=== PATIENT | female | born 1995 | race Caucasian/White ===

== ENCOUNTER 2020-05-28 09:00 | Outpatient (RCR) | payer MEDICAID, SELFPAY ==
--- NOTE | 2020-05-28 09:00 | BH.SGPN.GN ---
This psychotherapy group was provided via telehealth using two-way, real-time interactive telecommunication technology between the patients and the provider. The interactive telecommunication technology included audio and video. The patient was offered telemedicine as an option for care delivery during the COVID-19 pandemic and consented to this option. Patient location: [place] Provider located at [facility] Behaviors/Verbalizations/Mental Status: []Client alert and oriented, casually dressed. Eye contact fair. Motor activity appropriate. Speech within normal limits. Affect congruent, mood anxious. Thoughts linear, logical, no signs of hallucinations or delusions. Reviewed client?s symptom tracker, no risk or plan for suicide ideation as of 05/28/20. Client Response/Progress/Benefit: [] Client responded well to session, engaged throughout AEB actively listening, but quiet. Client declined to share in group as it was her first day of the IOP group. Benefited from group as client was able to establish rapport with other group members and understand the format of process group. Will continue IOP to increase the use of healthy coping skills, improve mood, and prevent decompensation. Narrative Note: []
--- NOTE | 2020-05-28 10:03 | BH.SGPN.GN ---
This psychotherapy group was provided via telehealth using two-way, real-time interactive telecommunication technology between the patients and the provider.?The interactive telecommunication technology included audio and video.? ?The patient was offered telemedicine as an option for care delivery during the COVID-19 pandemic and consented to this option. ?Patient location: [place] ?Provider located at [facility] Behaviors/Verbalizations/Mental Status: []Client alert and oriented, casual dress, hygiene tended to. Eye contact good. Motor activity appropriate. Speech within normal limits. Affect congruent, mood anxious. Thoughts linear, logical, no signs of hallucinations or delusions. Client Response/Progress/Benefit: []Pt responded well to session AEB pt contributing to session and listening attentively to others. Pt connected with the topic of resilience as well as the different things people have to ?juggle? in life. Discussed the positive and negative forces in life that impact a person?s resilience. Pt identified a positive force to be encouraging people. Pt contributed to small group discussion on traits that promote resilience. Pt?s group discussed acceptance, self-awareness, and hopeful outlook as strategies to increase resilience. Pt seemed to benefit from increasing awareness of strategies to increase personal resilience. First day of IOP tx. Pt will continue IOP tx to prevent decompensation, improve mood stability, and learn healthy coping skills. Narrative Note: []
--- NOTE | 2020-05-28 11:00 | BH.SGPN.GN ---
This psychotherapy group was provided via telehealth using two-way, real-time interactive telecommunication technology between the patients and the provider. The interactive telecommunication technology included audio and video. The patient was offered telemedicine as an option for care delivery during the COVID-19 pandemic and consented to this option. Patient location: [place] Provider located at [facility] Behaviors/Verbalizations/Mental Status: []Client alert and oriented, casual dress, hygiene tended to. Eye contact fair. Motor activity appropriate. Speech within normal limits. Affect flat, mood anxious. Thoughts linear, logical, no signs of hallucinations or delusions. Client Response/Progress/Benefit: []Client responded well to session AEB contributing to discussion. Client participated in the discussion of how each resiliency component can help increase personal resiliency. Client identified current resiliency traits client currently possesses and how these can continue to help client in treatment. Client identified personal resilience trait as having healthy connections through supports and therapy. Client?s goal is to increase self-awareness of feelings and emotions by journaling daily. Benefited from group as client was vulnerable and communicated through her first day of IOP program. Will continue IOP to increase the use of healthy coping skills and improve daily functioning. Narrative Note: []
--- NOTE | 2020-05-30 09:00 | BH.SGPN.GN ---
Behaviors/Verbalizations/Mental Status: [] Eye contact is good. Motor activity is appropriate. Appearance is disheveled. Speech is Appropriate. Mood is depressed. Affect is flat. Thoughts are linear and logical. No evidence of psychosis. Client Response/Progress/Benefit: [] Pt participated at times during the group discussion. Emotion for today is anxious. Attentive. Mental health wins included getting out of the house stating that she went out to dinner with her mother. States that she spend her life in the basement and does not leave due to mainly to MH symptoms. Shared that she was anxious however used some thought-reframing skills to help. Believes that leaving the basement was helpful. Overall feels that she is not managing her emotions well. States that she attempted to clean the house and got very upset and lashed out on herself. Hx of self-injurious behaviors (hitting self). Benefited from group support and encouragement. Some progress noted by patient. Will continue in IOP to maintain safety, increase coping skills, and improve functioning. Narrative Note: [] This psychotherapy group was provided via telehealth using two-way, real-time interactive telecommunication technology between the patients and the provider.?The interactive telecommunication technology included audio and video.? ?The patient was offered telemedicine as an option for care delivery during the COVID-19 pandemic and consented to this option. ?Patient location: [place] ?Provider located at [facility]
--- NOTE | 2020-05-30 11:45 | BH.NA ---
Physical Data - Height/Weight Height: 1.68 m Weight:: 81.647 kg Weight in Pounds: 180.0 lbs Current Medication Compliance - Medication Compliance Do you take your medication as prescribed?: Yes Nutritional History - Appetite Nutritional Instructions:: If client shows signs of a swallowing problem, weight change of 10 pounds or more in the last month, or is on a diabetic diet, the physician will review and request a dietitian consult, as appropriate. All unintentional weight loss will be referred to the physician for decision on need for dietitian consult. Describe your appetite:: Fair Additional nutritional information:: Client states her appetite varies, stating sometimes she binges food and sometimes she doesn't eat at all. Functional Assessment - Sleep Pattern Describe any problems with sleeping: Client states for the past 4 months she has been sleeping 12 hours per day. - Activities Motor Activity:: Functional Sensory/Communication Assess - Communication Problems Do you have difficulty understanding what people are saying?: No Medical Problems/History - Cardiac Conditions Cardiovascular: Other (See comments) Comments:: POTS - Additional History Additional comments:: depression, anxiety, borderline personality, PTSD Surgical History - Surgical History Have you had any surgeries? If so, list type and date:: No Substance Abuse - Substance Abuse Please describe substance abuse in the last 30 days:: Client states she used to drink alcohol excessively when depressed, but states she does not ever drink alcohol now. Client states she vapes tobacco. Client denies substance abuse. Client states she drinks 1-2 drinks with caffiene daily. Mental Status Summary - Mental Status Significant Findings/Observations on Appearance and Mood:: Client is met with via telehealth. Client is alert and oriented x 4. Client appear to be casually groomed. Client's voice is normal rate. Client appears mildly anxious and depressed. Client denies delusions/hallucinations. Client states she has fleeting SI daily. Suicide Assessment - Suicidal Ideation Are you currently or have you been suicidal in the past?: Yes - fleeting SI daily Suicidal Intentional Rating Scale (SIRS): Current suicidal thoughts/No plan/Contracts for safety Physician Notification: If Active suicidal thoughts/Will not contract for safety is checked, contact physician and document in the Physician Notification section below. Past Psychiatric History - MH Treatment Hx Past Psychiatric Medications:: Client does not remember past medications. Age of first mental health symptoms: Client states she was diagnosed with anxiety and depression around 10 years old and started taking medication. Client states she was diagnosed with borderline personality in the last few months. Describe (age, circumstance, etc) any past hospitalizations: [facility] in [place] in 2015 Current providers for mental health treatment (counselor, psychiatrist, catalytic case operator, etc.): therapy and psychiatry at [facility]. Fall Risk Assessment - Age Age: Less than 60 - Mental Status Mental Status: Willing & able to ask for assistance when needed - Physical Status Physical Status: No problems - Impairments Impairments: None - Elimination Elimination: Continent AND independent - Gait or Balance Gait or Balance: Walks independently - Hx of Falls History of falls in the past 6 months: No known history - Medications/Substances Psychotropics:: Antidepressants, Antipsychotics Medications/substances used within the past 24 hours or ordered to administer: 1-2 of the medications/substances listed above - Total Score Total Points:: 1 RN Summary of Impressions - Impressions Recommendations: Include psychiatric and medical issues, treatment planning recommendations, and discharge planning needs. Impressions: Psychiatric Issues: Borderline personality disorder; major depressive disorder reccurent, severe without psychosis; panic disorder. - Level of Care How do the client's current symptoms and functional deficits support need for this level of care?: Client was referred to IOP by her outpatient therapist for depression and fleeting SI. Client states over the last month or more, she has had vivid suicidal thoughts and is self-harming herself. Client states she stratches and hits herself. Client states she self-harmed as recently as yesterday, and has bruises and a cut on her arm. Client states she does this daily when I get mad at myself. Client also endorses decreased energy, hopelessness, anhedonia and ruminations. Client states even though she is disabled, she feels like she is not going anywhere in life and like she should have a job and this is partially her cause for depression. Client states she has daily fleeting SI, sometimes with vivid suicidal thoughts. Client states to cope with these, she usually goes to sleep to make her stop thinking them. Client states she sleeps 12 hours per day and has done this for several months. IOP will promote gains and prevent further decompensation while providing social support and skills training.
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
--- NOTE | 2020-05-30 12:32 | BH.PSY.EVA_ITS ---
Initial Treatment Plan - Patient Information Visit Information: ADMISSION DATE: EXPECTED LOS: 4-6 weeks - Problems/Symptoms Problem #1:: Depression Symptom:: Hopelessness, anhedonia, sadness, hypersomnia, passive fleeting suici hayden ideation, self-harm behaviors Problem #2:: Anxiety Symptom:: Rumination, worry, panic attacks
--- NOTE | 2020-05-31 09:08 | BH.SGPN.GN ---
This psychotherapy group was provided via telehealth using two-way, real-time interactive telecommunication technology between the patients and the provider.?The interactive telecommunication technology included audio and video.? ?The patient was offered telemedicine as an option for care delivery during the COVID-19 pandemic and consented to this option. ?Patient location: [place] ?Provider located at [facility] Behaviors/Verbalizations/Mental Status: []Client alert and oriented, casually dressed and groomed. Eye contact good. Motor activity appropriate. Speech within normal limits. Affect constricted, mood anxious. Thoughts linear, logical, no signs of hallucinations or delusions. Therapist assessed client?s symptom tracker via Zoom, no risk for suicidal ideation, plan, or intent as of 05/31/20 Client Response/Progress/Benefit: []Client responded well to session, attentive and receptive to feedback. Client reports feeling anxious this morning. Client stated group makes her anxious, but so far client has been enjoying the group setting. Client shared in her first week she has learned a lot of coping skills and also gained more awareness of her feelings. Client reported I didn't do much of anything yesterday but client was able to challenge this perspective. Client acknowledged that coming to IOP and seeing different providers takes a lot of energy and focus. Client shared she would like to work on being less negative and was encouraged to ask her individual therapist about thought challenging. Appeared to benefit from connecting with peers and reframing thoughts in the moment. Will continue IOP tx to prevent decompensation, reduce isolative behaviors, and improve emotional regulation skills. Narrative Note: []
--- NOTE | 2020-05-31 10:10 | BH.SGPN.GN ---
This psychotherapy group was provided via telehealth using two-way, real-time interactive telecommunication technology between the patients and the provider. The interactive telecommunication technology included audio and video. The patient was offered telemedicine as an option for care delivery during the COVID-19 pandemic and consented to this option. Patient location: [place] Provider located at [facility] Behaviors/Verbalizations/Mental Status: []Client alert and oriented, casually dressed and appropriately groomed. Eye contact good. Motor activity appropriate. Speech within normal limits. Affect constricted, mood anxious, Thoughts linear, logical, no signs of hallucinations or delusions. Client Response/Progress/Benefit: []Client receptive of session, attentive and taking notes. Group discussed benefits of healthy communication on mental health which included: allows others to know what we are feeling, get our needs met, prevent avoidable problems, improve relationships, and help establish healthy boundaries. Group additionally discussed potential barriers to communication including: shutting down, passive-aggressive communication, assumptions, being vague, and poor emotional regulation. Client noted connecting with barriers of assuming negative outcomes, walking away, and shutting down. Remained attentive during psychoeducation on the four communication styles. Client self-reports identifying most with the passive communication style and wanting to become more assertive in communication. Benefited from increased insight regarding own communication style and impacts this has on overall mental health. Progress noted as client understood the impact that passive communication may have on her relationships and mental health. Will continue IOP to improve healthy coping skills, prevent decompensation, and improve daily functioning. Narrative Note: []
--- NOTE | 2020-05-31 11:20 | BH.SGPN.GN ---
This psychotherapy group was provided via telehealth using two-way, real-time interactive telecommunication technology between the patients and the provider.?The interactive telecommunication technology included audio and video.? ?The patient was offered telemedicine as an option for care delivery during the COVID-19 pandemic and consented to this option. ?Patient location: [place] ?Provider located at [facility] Behaviors/Verbalizations/Mental Status: []Client alert and oriented, casually dressed and appropriately groomed. Eye contact good. Motor activity appropriate. Speech WNL. Affect constricted, mood depressed and anxious. Thoughts linear, logical, no signs of hallucinations or delusions. Client Response/Progress/Benefit: []Client responded well to session AEB client listening attentively to others and providing some input during group discussion on the pay offs and costs of the different communication styles. Attentive during psychoeducation on assertiveness strategies to improve communication, and client selected an assertiveness skill to practice. Client selected the skill assert is what she wants to work on because she tends to be passive which results in other's walking all over me. Will continue IOP tx to increase healthy coping skills, improve emotional regulation, and prevent decompensation.
--- NOTE | 2020-06-06 09:00 | BH.SGPN.GN ---
This psychotherapy group was provided via telehealth using two-way, real-time interactive telecommunication technology between the patients and the provider. The interactive telecommunication technology included audio and video. The patient was offered telemedicine as an option for care delivery during the COVID-19 pandemic and consented to this option. Patient location: [place] Provider located at [facility] Behaviors/Verbalizations/Mental Status: []Client alert and oriented, disheveled appearance. Eye contact fair to poor. Motor activity appropriate. Appeared to be smoking during session which will be addressed. Speech within normal limits. Affect congruent, mood dysthymic. Thoughts linear, logical, no signs of hallucinations or delusions. Reviewed client?s symptom tracker, no risk or plan for suicide ideation as of 06/06/20. Client Response/Progress/Benefit: []Client responded well to session, engaged throughout and participated in group discussion. Client reported feeling ?tired? this morning as client stated she was in the hospital throughout the night due to being dehydrated. Client stated she forgets to drink due to the severity of depression at times. Benefited from group as peers offered ideas to help increase the amount of water daily like buying a reusable water bottle, setting alarms to remind self to drink, and using sticky notes as reminders. Client reported her goal is to write in her journal. Will continue IOP to continue the use of healthy coping skills, improve daily functioning, and reduce negative thinking. Narrative Note: []
== END 2020-06-03 23:59 ==
LOC: BHIOP 09:00
PROVIDERS: Referring Provider Psychiatry & Neurology Psychiatry; Visit Provider Psychiatry & Neurology Psychiatry
DX: F60.3 Borderline personality disorder (principal); F33.2 Major depressive disorder, recurrent severe without psychotic features; F41.0 Panic disorder [episodic paroxysmal anxiety]
CPT/HCPCS: H2012; H2020

== ENCOUNTER 2020-06-06 09:00 | Outpatient (RCR) | payer MEDICAID, SELFPAY ==
--- NOTE | 2020-06-15 14:59 | BH.DS_ITS ---
Discharge Summary - Demographics Date of Admission:: 05/28/20 Discharge Date: 06/15/20 Presenting Problems at Admission:: The patient is a 24-year-old single female with a history of depression, anxiety and borderline personality disorder who was referred to the [facility] behavioral health IOP program by her outpatient therapist due to worsening symptoms of depression and fleeting suicidal ideation for the past month. The patient has been on disability for mental health reasons since about 2 months ago. 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 Patient says that she gets angry very easily and then after she gets angry she hurts herself. She endorsed feeling sad and easily angered. She also endorsed feeling worthless, hopeless, anhedonia, increased isolation, erratic appetite, decreased energy, decreased concentration, increased sleep and has no motivation. She admitted to passive, fleeting suicidal ideation only. The patient endorsed worrying a lot and negative ruminations. She has a history of an eating disorder where she restricted her eating and purged using enemas but she last purged using enemas at age 22 about 1 year ago. Denies any other purging. She does have a history of trauma but does not meet criteria for PTSD right now. Discharge Diagnoses:: F33.2 Borderline personality disorder; major depressive disorder recurrent, severe without psychosis; panic disorder Reason for Discharge:: Pt reported she does not want to continue IOP program because did not like doing group through telehealth. Pt offered to come in person to [facility] but she declined. - Treatment Progress During Treatment & Response: No progress noted given pt has only attended a few sessions. Pt mostly quiet during group sessions due to reporting social anxiety. Issues Still to be Addressed:: Pt could benefit from increasing healthy coping skills, decreasing isolation, decreasing anxious thoughts, improve self confidence, and challenge distorted thoughts. Discharge Recommendations/Instructions:: Pt recommended to continue outpatient counseling and psychiatry with already established providers at [facility]. Discharge Handout: Complete Discharge Handout with client on aftercare options and continuity of care.
== END 2020-07-01 23:59 ==
LOC: BHIOP 09:00
PROVIDERS: Referring Provider Psychiatry & Neurology Psychiatry; Visit Provider Psychiatry & Neurology Psychiatry
DX: F33.2 Major depressive disorder, recurrent severe without psychotic features (principal); F60.3 Borderline personality disorder; F41.0 Panic disorder [episodic paroxysmal anxiety]
CPT/HCPCS: H2012

== ENCOUNTER 2022-02-25 09:06 | Emergency (ER) | payer MEDICARE, MEDICAID, SELFPAY ==
[2022-02-25 09:07] VITALS: BP 127/79; PULSE 67; RESP 17; TEMP 36.3; O2SAT 100; BMI 33.3
--- NOTE | 2022-02-25 09:39 | EDS_ITS ---
HPI HPI - Psych History of Present Illness Chief Complaint: Suicidal Informant: patient Onset/Context/Timing Onset: Weeks Context: Gradual Onset Narrative Narrative: Patient presents with police for evaluation of suicidal ideation. She states she is been feeling this way for about a month, but she broke up with her boyfriend 2 days ago and symptoms have been worse. She states that she is a cutter. In the past she has cut to release her feelings but feels that if she were to cut now she would go deeper to try to end her life. She also discusses jumping out in front of traffic to get hit by a car. Patient states she has attempted to harm herself in the past. She is never been hospitalized in a psychiatric facility. She does follow with the counseling center. There have been no recent changes to her medications. [facility] Medical History POTS (postural orthostatic tachycardia syndrome) Home Medications cariprazine 1.5 mg capsule 1.5 mg PO QHS 05/30/20 [History Last Taken Unknown] cariprazine 3 mg capsule 3 mg PO BREAKFAST 05/30/20 [History Last Taken Unknown] desvenlafaxine succinate 50 mg tablet,extended release 24 hr 50 mg PO DAILY 05/30/20 [History Last Taken Unknown] midodrine 5 mg tablet 5 mg PO TID 05/30/20 [History Last Taken Unknown] oxcarbazepine 300 mg tablet 300 mg PO BID 05/30/20 [History Last Taken Unknown] venlafaxine 75 mg tablet 75 mg PO DAILY 05/30/20 [History Last Taken Unknown] Allergy/AdvReac Type Severity Reaction Status Date / Time No Known Allergies Allergy Verified 02/25/22 09:06 Social History Smoking Status: Current every day smoker tobacco type: cigarettes ROS ROS ED Constitutional Constitutional ED: Denies chills or fever(s) Eyes Eyes: Denies change in vision or discharge from eye(s) ENT ENT ED: Denies discharge from eye(s), rhinorrhea or sore throat Cardiovascular Cardiovascular: Denies chest pain or palpitations Respiratory/Chest Respiratory/Chest: Denies cough or dyspnea Gastrointestinal Gastrointestinal: Denies abdominal pain, diarrhea, nausea or vomiting Genitourinary Genitourinary ED: Denies difficulty urinating or dysuria Musculoskeletal Musculoskeletal: Denies back pain or extremity pain Integumentary Denies Abrasions or rash Neurologic Neurologic: Denies headache(s) or weakness Psychiatric Psychiatric: Reports anxiety, depression and suicidal ideation Endocrine Endocrinology: Denies polydipsia or polyuria Allergic/Immunologic Allergic/Immunologic ED: Denies lip swelling or urticaria EXAM Physical Exam Const Vital Signs: 02/25/22 09:07 Temperature 97.3 F L Temperature Source Temporal Pulse Rate 67 Respiratory Rate 17 Blood Pressure 127/79 H Blood Pressure Mean 95 Pulse Ox 100 Oxygen Delivery Method Room Air Positive well nourished and well developed General Appearance ED: well developed HEENT Reports normocephalic and head/scalp atraumatic Eyes PERRL and EOMs intact bilaterally Neck supple Chest Wall inspection of chest normal and palpation of chest normal Resp normal respiratory effort and clear to auscultation bilaterally Cardio regular rate and regular rhythm GI normal to inspection, nondistended, normoactive bowel sounds Palpation: soft Extremity normal to inspection Neuro oriented x3 and no sensory deficits noted Sensorium / Orientation: alert Motor Exam: strength 5/5 throughout Psych cooperative Attitude: calm Activity / Motor Behavior: appropriate eye contact Speech: normal speech Mood & Affect: depressed, sad and tearful Thought Content: suicidality Skin no rashes or lesions noted MDM MDM MDM Narrative Medical decision making narrative: Lab work obtained for psychiatric clearance. Lab Data Labs: Laboratory Results - last 24 hr 02/25/22 02/25/22 02/25/22 09:46 10:00 10:00 WBC 6.8 RBC 4.87 Hgb 14.3 Hct 42.2 MCV 86.7 MCH 29.4 MCHC 33.9 RDW Std Deviation 39.1 RDW Coeff of [place] 12.3 Plt Count 247 MPV 9.2 Immature Gran % (Auto) 0.100 Neut % (Auto) 69.0 Lymph % (Auto) 21.6 [place] % (Auto) 8.1 Eos % (Auto) 0.6 Baso % (Auto) 0.6 Absolute Neuts (auto) 4.7 Absolute Lymphs (auto) 1.47 Nucleated RBC % 0 Sodium 143 Potassium 3.9 Chloride 111 H Carbon Dioxide 28.0 Anion Gap 4 L BUN 10 Creatinine 0.69 Estim Creat Clear Calc 117.69 Est GFR (MDRD) Af Amer 135 Est GFR (MDRD) Non-Af 111 BUN/Creatinine Ratio 14.5 Glucose 96 Calcium 9.3 Serum , Qual Urine Opiates Screen NEGATIVE Urine Methadone Screen NEGATIVE Ur Barbiturates Screen NEGATIVE Ur Phencyclidine Scrn NEGATIVE Ur Amphetamines Screen NEGATIVE MDMA (Ecstasy) Screen NEGATIVE U Benzodiazepines Scrn NEGATIVE Urine Cocaine Screen NEGATIVE U Cannabinoids Screen POSITIVE H Ur Drug Screen Comment Ethyl Alcohol 02/25/22 02/25/22 10:00 10:00 WBC RBC Hgb Hct MCV MCH MCHC RDW Std Deviation RDW Coeff of [place] Plt Count MPV Immature Gran % (Auto) Neut % (Auto) Lymph % (Auto) [place] % (Auto) Eos % (Auto) Baso % (Auto) Absolute Neuts (auto) Absolute Lymphs (auto) Nucleated RBC % Sodium Potassium Chloride Carbon Dioxide Anion Gap BUN Creatinine Estim Creat Clear Calc Est GFR (MDRD) Af Amer Est GFR (MDRD) Non-Af BUN/Creatinine Ratio Glucose Calcium Serum , Qual NEGATIVE Urine Opiates Screen Urine Methadone Screen Ur Barbiturates Screen Ur Phencyclidine Scrn Ur Amphetamines Screen MDMA (Ecstasy) Screen U Benzodiazepines Scrn Urine Cocaine Screen U Cannabinoids Screen Ur Drug Screen Comment Ethyl Alcohol 3.0 Treatment and Re-Evaluation Narrative: Lab work is unremarkable. Tox screen positive only for cannabinoids. Alcohol is negative. Patient seen and evaluated by social work. She agrees patient will benefit from inpatient treatment. She has been accepted at [facility]. Discharge Plan Triage Chief Complaint: Suicidal ED Provider: Anais Landrum Dx/Rx/DC Orders Clinical Impression: Suicidal ideation Prescriptions: No Action venlafaxine 75 MG tablet 75 mg PO DAILY oxcarbazepine 300 MG tablet 300 mg PO BID desvenlafaxine succinate 50 MG tablet 50 mg PO DAILY cariprazine 1.5 MG capsule 1.5 mg PO QHS cariprazine 3 MG capsule 3 mg PO BREAKFAST midodrine 5 MG tablet 5 mg PO TID Primary Care Provider: Care Physician,No Primary Referrals: Care Physician,No Primary [Primary Care Provider] - Disposition Disposition: Psychiatric Hospital or Unit Discharge Location: [facility]
[2022-02-25 10:16] LABS: Absolute Lymphocyte Count 1.47 X10^3/uL (0.83-4.51); Absolute Neutrophil Count 4.7 X10^3/uL (2.0-7.7); Basophil# 0.04 X10^3/uL; Basophil% 0.6 % (0-1); Eosinophil# 0.04 X10^3/uL; Eosinophils% 0.6 % (0-5); Hematocrit 42.2 % (37-47); Hemoglobin 14.3 g/dL (12.0-15.0); Lymphocyte # 1.47 X10^3/ul (0.83-4.51); Lymphocyte % 21.6 % (19-41); Mean Corp Hgb Conc 33.9 g/dL (32-36); Mean Corpuscular Hgb 29.4 pg (27.0-32.0); Mean Corpuscular Volume 86.7 fL (81-99); Mean Platelet Vol. 9.2 fl (6.2-12.0); Monocyte# 0.55 X10^3/uL; Monocyte% 8.1 % (0-10); NRBC Flagged by Analyzer 0 % (0-5); Neutrophil # 4.69 X10^3/uL (2.7-7.7); Platelet Count 247 K/mm3 (150-450); RBC Distribution Width CV 12.3 % (11.6-14.6); RBC Distribution Width SD 39.1 fl (35.1-43.9); Red Blood Count 4.87 M/mm3 (4.2-5.4); White Blood Count 6.8 K/mm3 (4.4-11.0)
[2022-02-25 10:22] LABS: Amphetamine Urine VISTA NEGATIVE (<1000 ng/mL); Barbiturate Urine VISTA NEGATIVE (< 200 ng/mL); Benzodiazepine Urine VISTA NEGATIVE (< 200 ng/mL); Cocaine Urine VISTA NEGATIVE (< 300 ng/mL); Ecstacy Urine VISTA NEGATIVE (< 500 ng/mL); Methadone Urine VISTA NEGATIVE (< 300 ng/mL); PCP Urine VISTA NEGATIVE (< 25 ng/mL); THC Urine VISTA POSITIVE (< 50 ng/mL); Vista UDS pH Range 6
[2022-02-25 10:24] LABS: Internal QC Validated? YES +Cl - CLEAR BKGD; Pregnancy, Serum, hCG Quali. NEGATIVE Negative
[2022-02-25 10:27] LABS: Anion Gap 4 (5-15); BUN 10 mg/dL (7-18); BUN/Creat Ratio 14.5 RATIO (10-20); Calcium,Total 9.3 mg/dL (8.5-10.1); Chloride 111 mmol/L (98-107); Creatinine, Serum 0.69 mg/dL (0.55-1.02); EST Glomerular Filtration Rate 111 mL/min (>60); Est Glom Filt Rate - Afr Amer 135 mL/min (>60); Estimated Creatinine Clearance 117.69 ml/min; Glucose 96 mg/dL (74-106); Potassium 3.9 mmol/L (3.5-5.1); Sodium Level 143 mmol/L (136-145)
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
--- NOTE | 2022-02-25 12:06 | NURSING ---
SPOKE WITH DEVAN FROM [facility], ETA OF 12:40 AT THIS TIME TO GET PT TO [facility]
[2022-02-25 12:18] VITALS: BP 124/81; PULSE 67; RESP 15; O2SAT 98
[2022-02-25 12:27] VITALS: BP 124/81; PULSE 67; RESP 15; O2SAT 98
--- NOTE | 2022-02-25 12:32 | CM.ED ---
SW Note SW received call from Raymundo at [facility]. Patient was accepted by Dr. Medley. Will be going to the ABU Unit. RN to RN is [phone]. ALBERT updated patient that she was accepted at [facility]. ALBERT updated tunnel elastic operator lockstitch and MD that patient was accepted at [facility]. Artie, equal opportunity specialist, to call for transport. Plan: [facility] Khadijah GRANADOS
== END 2022-02-25 12:30 ==
PROVIDERS: Emergency Provider Emergency Medicine; Visit Provider Emergency Medicine
DX: R45.851 Suicidal ideations (principal); F17.210 Nicotine dependence, cigarettes, uncomplicated; Z20.822 Contact with and (suspected) exposure to COVID-19
CPT/HCPCS: 80048; 80307; 82077; 84703; 85025; 87811; 99283

== ENCOUNTER 2025-02-08 15:55 | Emergency (ER) | payer MEDICARE, MEDICAID, SELFPAY ==
[2025-02-08 15:57] VITALS: BP 123/80; PULSE 66; RESP 14; TEMP 36.4; O2SAT 100; BMI 26.2
--- NOTE | 2025-02-08 16:33 | ED.VIS.GI ---
HPI HPI - GI History of Present Illness Chief Complaint: Abd Pain Narrative Narrative: Patient is a 29-year-old female presenting to the emergency department for lower abdominal pain that started today. Patient reports that she has been nauseous for the past week. She states this feels similar to prior episodes of painful bladder syndrome. States her last menstrual period was about 1 month ago but she does have very irregular periods. States that she took a test today and she thinks it was negative but unsure. She is sexually active. Denies any vaginal bleeding, discharge or pelvic pain. Denies any concern for any STDs. Denies fever, chills, vomiting, constipation or diarrhea. Denies vomiting. PFSH PFS Medical History Anxiety Bladder pain syndrome IBS (irritable bowel syndrome) GERD (gastroesophageal reflux disease) Smoker Asthma POTS (postural orthostatic tachycardia syndrome) Home Medications ?Medication ?Instructions ?Recorded ?Last Taken ?Type cephalexin 500 mg capsule 500 mg PO Q12 #14 CAPSULES 02/08/25 Unknown Rx metoprolol succinate 25 mg capsule 25 mg PO DAILY 02/08/25 Unknown History sprinkle, ext. release 24 hr sertraline 50 mg tablet (Zoloft) 75 mg PO DAILY 02/08/25 Unknown History Allergy/AdvReac Type Severity Reaction Status Date / Time No Known Allergies Allergy Verified 02/08/25 15:57 Social History Smoking Status: Current every day smoker tobacco type: smokeless tobacco ROS ROS ED ROS Narrative See HPI EXAM Physical Exam Narrative Exam Narrative: Vital signs: Reviewed General: Alert and oriented. No acute distress HEENT: Head is normocephalic and atraumatic, sinuses nontender, pupils equal round and reactive. Nares are patent. Oropharynx and throat exams normal. Neck: Supple without lymphadenopathy nontender Cardiovascular: Regular rate and rhythm, no murmurs. No rubs or gallops. Normal S1 and S2 Respiratory: Clear to auscultation bilaterally. No wheezes, rales, rhonchi Abdominal: Lower abdomen is tender to palpation in all quadrants, most tender in the suprapubic region. No CVA tenderness to palpation bilaterally. Soft and nontender. Normal bowel sounds. No guarding or rebound. Nonsurgical abdomen Extremities: No tenderness. No bruising. Normal range of motion. Normal sensation. Skin: No rash or redness. The rest of the physical exam is unremarkable Const Vital Signs: 02/08/25 15:57 02/08/25 17:56 02/08/25 18:46 Temperature 97.6 F L 98.6 F Temperature Source Temporal Pulse Rate 66 50 L Respiratory Rate 14 16 Blood Pressure 123/80 H 119/78 115/67 Blood Pressure Mean 94 91 83 Pulse Ox 100 100 Oxygen Delivery Method Room Air MDM MDM MDM Narrative Medical decision making narrative: Patient is a 29-year-old female presenting to the emergency department for nausea and lower abdominal pain. Patient was seen and examined. Vitals are stable. Patient resting in bed comfortably in no acute distress. Differential includes but is not limited to: UTI, appendicitis, less likely ovarian pathology including torsion given bilateral pain and physical exam Labs, urinalysis and urine ordered. Urine negative. Patient's urine with leukocyte esterase, WBCs and 1+ bacteria, may be contaminated with epithelial cells however patient is having increased frequency and urgency. Will treat with a dose of Keflex here. Will discharge home on Keflex as well. CBC with no leukocytosis and a normal hemoglobin. CMP with no significant abnormalities. Normal kidney function. CT of the abdomen and pelvis shows bilateral small pleural effusion, trace free fluid in the pelvis. An enhancing crenulated structure in the right ovary indicating ovulating follicle. Otherwise unremarkable CT abdomen pelvis. Patient was updated on the labs and imaging findings. Discussed treatment for her UTI at home. Patient discharged from the Emergency Department. I do not feel that the patient's evaluation reveals any acute reason for admission at this time. I instructed them to either follow-up with their primary care physician or promptly return to the Emergency Department for reevaluation should symptoms worsen or new symptoms develop. I explained what symptoms would indicate the need to return to the emergency department. Shared decision making was used. The patient voiced understanding of the treatment plan and is agreeable with it. Clinical impression UTI History & Record Review Discussion w/independent historian: Patient Lab Data Attestation: I reviewed the patient's lab results. Labs: Laboratory Results - last 24 hr 02/08/25 02/08/25 16:32 16:49 WBC 9.4 RBC 4.42 Hgb 12.9 Hct 37.6 MCV 85.1 MCH 29.2 MCHC 34.3 RDW Std Deviation 37.7 RDW Coeff of [place] 12.2 Plt Count 219 MPV 9.5 Immature Gran % (Auto) 0.300 Neut % (Auto) 68.9 Lymph % (Auto) 22.4 Stone % (Auto) 7.6 Eos % (Auto) 0.4 Baso % (Auto) 0.4 Absolute Neuts (auto) 6.5 Absolute Lymphs (auto) 2.11 Nucleated RBC % 0 Sodium 141 Potassium 3.4 Chloride 105 Carbon Dioxide 23.9 Anion Gap 12 BUN 9 Creatinine 0.60 L Estim Creat Clear Calc 144.70 Est GFR (MDRD) Non-Af 126 BUN/Creatinine Ratio 15.0 Glucose 80 Calcium 9.1 Total Bilirubin 0.44 AST 16 ALT 11 Alkaline Phosphatase 43 Total Protein 6.4 Albumin 4.4 Globulin 2.0 L Albumin/Globulin Ratio 2.1 Lipase 16 Urine Color Yellow Urine Clarity Clear Urine pH 6.0 Ur Specific [place] 1.020 Urine Protein 15 H Urine Glucose (UA) Normal Urine Ketones 5 H Urine Occult Blood 10 H Urine Nitrite Negative Urine Bilirubin Negative Urine Urobilinogen Normal Ur Leukocyte Esterase 100 H Urine RBC 0-5 SEEN Urine WBC 5-10 SEEN Ur Squamous Epith Cells 10-25 SEEN Urine Bacteria 1+ Urine Mucus 0 SEEN Urine Test Negative Radiography Diagnostic Testing: Clinical Impression(s) from Imaging Studies Abdomen/Pelvis CT 02/08/25 17:57 IMPRESSION: Bilateral small pleural effusion. Trace free fluid in the pelvis. An enhancing crenulated structure in the right ovary indicating ovulating follicle. Otherwise, no acute abdominopelvic abnormalities. Reading Location: [facility] Discharge Plan Triage Chief Complaint: Abd Pain ED Provider: Tonya Guillaume Dx/Rx/DC Orders Clinical Impression: UTI (urinary tract infection) Instructions: ED Cystitis Female Adult Prescriptions: New cephalexin 500 mg capsule 500 mg PO Q12 Qty: 14 0RF No Action metoprolol succinate 25 mg capsule,sprinkle,ER 24hr 25 mg PO DAILY sertraline [Zoloft] 50 mg tablet 75 mg PO DAILY Primary Care Provider: MATILDA DAVILA Referrals: MATILDA DAVILA MD [Primary Care Provider, Family Practice] - As soon as possible Activity Restrictions/Additional Instructions: Take the antibiotic as prescribed. Your evaluation in the Emergency Department did not reveal any acute reason for admission. However, I want to emphasize that you may be early in the course of a disease process or illness even if it is not present. For this reason you should follow-up within 24 hours for reevaluation with either your primary care physician or if necessary back here in the Emergency Department. You should return to the Emergency Department immediately if your symptoms worsen or new symptoms develop. Print Language: Vietnamese Disposition Disposition: Home, Self Care Discharge Date/Time: 02/08/25 19:06
[2025-02-08 16:45] LABS: Mucous, Urine 0 SEEN /hpf (<or=2+)
[2025-02-08 16:48] LABS: Color, Urine Yellow (Yellow); Glucose, Dipstick Normal (Normal); Ketone-Dipstick 5 mg/dl (Negative); Leukocyte Esterase-Dipstick 100 /ul (Negative); Nitrite-Dipstick Negative (Negative); Occult Blood-Urine 10 /ul (Negative); Protein-Dipstick 15 mg/dl (Negative); Specific Gravity, Urine 1.020 (1.002-1.030); Urine Bilirubin Dipstick Negative (Negative)
[2025-02-08 16:56] LABS: Hematocrit 37.6 % (37-47); Hemoglobin 12.9 g/dL (12.0-15.0); Immature Granulocytes Count 0.030 X10^3/uL (0.0-0.0); Mean Corp Hgb Conc 34.3 g/dL (32-36); Mean Corpuscular Volume 85.1 fL (81-99); Mean Platelet Vol. 9.5 fl (6.2-12.0); NRBC Flagged by Analyzer 0 % (0-5); Platelet Count 219 K/mm3 (150-450); RBC Distribution Width CV 12.2 % (11.6-14.6); RBC Distribution Width SD 37.7 fl (35.1-43.9); Red Blood Count 4.42 M/mm3 (4.2-5.4); White Blood Count 9.4 K/mm3 (4.4-11.0)
[2025-02-08 17:10] LABS: Internal QC Validated? YES +Cl - CLEAR BKGD; Pregnancy, Urine Negative Negative; Record Kit Lot#,Urine Preg 980607
[2025-02-08 17:39] LABS: AST(SGOT) 16 U/L (<=31); Alanine Aminotransfer ALT/SGPT 11 U/L (<=34); Albumin, Serum 4.4 g/dL (3.5-5.0); Alkaline Phosphatase 43 U/L (35-104); Anion Gap 12 (5-15); BUN 9 mg/dL (4-19); BUN/Creat Ratio 15.0 RATIO (10-20); Calcium,Total 9.1 mg/dL (7.6-11.0); Carbon Dioxide 23.9 mmol/L (21.0-32.0); Chloride 105 mmol/L (98-108); Estimated Creatinine Clearance 144.70 ml/min (50-250); Globulin 2.0 g/dL (2.2-4.2); Glucose 80 mg/dL (70-99); Lipase 16 U/L (13-75); Potassium 3.4 mmol/L (3.3-5.1)
[2025-02-08 17:50] LABS: Squamous Epithelial Cells - UA 10-25 SEEN /hpf (5-10)
[2025-02-08 17:51] LABS: Red Blood Cells-Urine 0-5 SEEN /hpf (0-5)
[2025-02-08 17:56] VITALS: BP 119/78
--- NOTE | 2025-02-08 17:57 | CT_ITS ---
PROCEDURE: ABDOMEN/PELVIS W IV CONT ONLY 02/08/2025 REASON FOR EXAM: LOWER ABD PAIN TECHNIQUE: Procedure Code: [id number] Modality: CT Procedure: ABDOMEN/PELVIS W IV CONT ONLY Coronal and Sagittal reconstruction series were provided. CONTRAST: Isovue 370 VOLUME: 99 mL One or more dose reduction techniques were used (e.g., Automated exposure control, adjustment of the mA and/or kV according to patient size, use of iterative reconstruction technique. RADIATION DOSE SUMMARY: CTDlvol: 8.13 mGy DLP: 468.87 mGycm COMPARISON: None. FINDINGS: Lung bases: Small bilateral pleural effusions. Liver: Hepatomegaly with the liver measures 19.2 cm in length. Gallbladder: Unremarkable. No biliary dilation. Spleen: Unremarkable. Pancreas: Unremarkable. Adrenals: Unremarkable. Kidneys: No hydronephrosis. No nephrolithiasis. Bladder: Unremarkable. Reproductive Organs: An enhancing crenulated structure in the right ovary indicating ovulating follicle. Bowel: No bowel wall thickening. No bowel obstruction. Appendix: Normal Lymph nodes: No lymphadenopathy. Vasculature: No aneurysm. No dissection. Peritoneum / Retroperitoneum: Trace free fluid in the pelvis. Bones: No acute bony abnormalities. CT/Abdomen/Pelvis W IV Cont ONLY IMPRESSION: Bilateral small pleural effusion. Trace free fluid in the pelvis. An enhancing crenulated structure in the right ovary indicating ovulating folli pretty. Otherwise, no acute abdominopelvic abnormalities. Reading Location: [facility]
[2025-02-08 18:46] VITALS: BP 115/67; PULSE 50; RESP 16; TEMP 37; O2SAT 100
== END 2025-02-08 19:06 | disposition home or self-care (01) ==
PROVIDERS: Emergency Provider Student in an Organized Health Care Education/Training Program; PCP Family Medicine; Visit Provider Student in an Organized Health Care Education/Training Program
DX: N39.0 Urinary tract infection, site not specified (principal); F17.220 Nicotine dependence, chewing tobacco, uncomplicated; Z79.899 Other long term (current) drug therapy
CPT/HCPCS: 74177; 80053; 81001; 81025; 83690; 85025; 87086; 87088; 96374; 96375; 99283; Q9967; A4216; J2405